=== PATIENT | male | born 1945 | race Caucasian/White ===

== ENCOUNTER 2016-09-14 05:05 | Inpatient (IN) | payer OTHER ==
[2016-06-28 14:06] VITALS: BMI 32.0
--- NOTE | 2016-06-28 14:48 | PAT Medication Instructions ---
Service Date Jun 28, 2016. Current Home Medication List Amlodipine (Norvasc), 5 MG PO QAM Aspirin (Aspirin Ec), 81 MG PO QAM Buspirone Hcl (Buspar), 15 MG PO BID Calcium/Vitamin D (Os-Brian 500 Plus D), 1 TAB PO QAM Desloratadine (Clarinex), 5 MG PO QAM Doxepin (Sinequan), 25 MG PO HS Mlnalizktdq-Dizqmiombmo-Yof C- (Glucosamine Chondroitin), 1 TAB PO QAM Ibuprofen Tab (Advil), 600 MG PO PRN Loratadine (Claritin), 10 MG PO QAM Probiotic Product (Probiotic), 1 TAB PO NOON Sildenafil Citrate (Viagra), 50 MG PO PRN Medication Instructions For Your Scheduled Surgery - Hold the following medications 10 days prior to surgery: Rlxtyeqmwmr-Tilbdknazmx-Rly C- (Glucosamine Chondroitin), 1 TAB PO QAM - Hold the following medications 24 hours prior to surgery: Sildenafil Citrate (Viagra), 50 MG PO PRN - Hold the following medications the morning of surgery: Probiotic Product (Probiotic), 1 TAB PO NOON Loratadine (Claritin), 10 MG PO QAM Ibuprofen Tab (Advil), 600 MG PO PRN (does not take regularly- not told to stop by surgeon) Calcium/Vitamin D (Os-Brian 500 Plus D), 1 TAB PO QAM Desloratadine (Clarinex), 5 MG PO QAM - Take the following medications the morning of surgery with a sip of water: Buspirone Hcl (Buspar), 15 MG PO BID Amlodipine (Norvasc), 5 MG PO QAM Aspirin (Aspirin Ec), 81 MG PO QAM - Take the following medications as scheduled the night before surgery: Doxepin (Sinequan), 25 MG PO HS Buspirone Hcl (Buspar), 15 MG PO BID If you have any questions please call us at [phone] or [phone] ( Emilie) or [phone]
[2016-06-28 15:19] LABS: BASO % 0.4 %; BASO ABS # 0.03 K/uL (0-0.2); COMPLETE YES; EOS % 2.9 %; HEMATOCRIT 41.6 % (42-52); IG% 0.2 %; LYMPH % 23.8 %; LYMPH ABS # 2.04 K/uL (1.2-3.4); MEAN CELL VOLUME 89.8 fL (80-100); MEAN CORPUSCULAR HEMOGLOBIN 31.5 pg (25-34); MEAN CORPUSCULAR HGB CONC 35.1 g/dl (32-36); MEAN PLATELET VOLUME 9.1 fL (7.4-10.4); MONO % 8.4 %; NEUT % 64.3 %; PLATELET COUNT 213 K/uL (130-400); RED BLOOD COUNT 4.63 M/uL (4.7-6.1); WHITE BLOOD COUNT 8.56 K/uL (4.8-10.8)
[2016-06-28 15:29] LABS: URINE APPEARANCE CLEAR (CLEAR); URINE BILIRUBIN NEG (NEG); URINE COLOR YELLOW; URINE NITRITE NEG (NEG); URINE SPECIFIC GRAVITY 1.027 (1.000-1.030); UROBILINOGEN NEG (NEG); ZZUR CULT IF INDIC CLEAN CATCH NO
[2016-06-28 15:30] LABS: PROTHROMBIN TIME (PATIENT) 10.6 SECONDS (9.0-12.0)
[2016-06-28 15:33] LABS: MANUAL MICROSCOPIC REQUIRED? NO; REVIEW REQ? NO
--- NOTE | 2016-06-28 15:38 | DIAGNOSTIC IMAGING REPORT ---
TWO VIEW CHEST CLINICAL HISTORY: Preoperative examination. FINDINGS: PA and lateral chest radiographs are obtained. No prior studies are available for comparison at the time of dictation. The cardiomediastinal silhouette is unremarkable. The lungs and pleural spaces are clear. There is no pneumothorax. The skeletal structures are osteopenic. Degenerative changes noted throughout the thoracic spine. Arthritic change is seen in the shoulders. Calcific tendinopathy is noted in the left shoulder. IMPRESSION: No active disease in the chest. Electronically signed by: Kavon Rosas M.D. 06/28/2016 3:36 PM
[2016-06-28 15:58] LABS: BUN/CREATININE RATIO 18.6 (10-20); CALCIUM 8.6 mg/dl (8.5-10.1); CREATININE 0.91 mg/dl (0.60-1.40); POTASSIUM 3.9 mmol/L (3.5-5.1)
[2016-06-29 05:47] LABS: ESTIMATED AVERAGE GLUCOSE 111 mg/dl; HA1C FLAG Normal (Normal)
[2016-09-06 11:12] VITALS: BMI 32.0
[2016-09-06 11:13] LABS: BASO % 0.3 %; BASO ABS # 0.03 K/uL (0-0.2); COMPLETE YES; EOS % 2.8 %; HEMATOCRIT 44.7 % (42-52); IG% 0.5 %; LYMPH % 28.2 %; LYMPH ABS # 2.74 K/uL (1.2-3.4); MEAN CELL VOLUME 92.4 fL (80-100); MEAN CORPUSCULAR HGB CONC 33.6 g/dl (32-36); MEAN PLATELET VOLUME 9.7 fL (7.4-10.4); MONO % 4.6 %; NEUT % 63.6 %; PLATELET COUNT 186 K/uL (130-400); RED BLOOD COUNT 4.84 M/uL (4.7-6.1); WHITE BLOOD COUNT 9.71 K/uL (4.8-10.8)
[2016-09-06 11:15] LABS: URINE APPEARANCE CLEAR (CLEAR); URINE BILIRUBIN NEG (NEG); URINE COLOR YELLOW; URINE NITRITE NEG (NEG); URINE SPECIFIC GRAVITY 1.012 (1.000-1.030); UROBILINOGEN NEG (NEG); ZZUR CULT IF INDIC CLEAN CATCH NO
[2016-09-06 11:21] LABS: PROTHROMBIN TIME (PATIENT) 10.2 SECONDS (9.0-12.0)
[2016-09-06 11:23] LABS: MANUAL MICROSCOPIC REQUIRED? NO; REVIEW REQ? NO
[2016-09-06 11:51] LABS: BUN/CREATININE RATIO 14.6 (10-20); CALCIUM 8.9 mg/dl (8.5-10.1); POTASSIUM 3.7 mmol/L (3.5-5.1)
--- NOTE | 2016-09-13 18:46 | HISTORY & PHYSICAL EXAMINATION ---
DATE OF ADMISSION: 09/14/2016 CHIEF COMPLAINT: Chronic right shoulder pain. HISTORY OF PRESENT ILLNESS: This is a 71-year-old male patient of Dr. Mendez'asad complaining of chronic right shoulder pain, longstanding, now progressively getting worse. The patient has been diagnosed with end-stage osteoarthritis and has failed conservative treatment. PAST MEDICAL HISTORY: Heart valve problem, mitral valve prolapse which is benign; hypertension; sleep apnea with the use of a mouth piece; he has posttraumatic stress disorder. SOCIAL HISTORY: Nonsmoker. He is about a 14-drink per week drinker. SURGICAL HISTORY: Right elbow and right leg benign tumor removal. FAMILY HISTORY: Noncontributory. REVIEW OF SYSTEMS: Right shoulder pain. Otherwise denies any shortness of breath, chest pain, nausea, vomiting or any other joint complaints. FAMILY HISTORY: Noncontributory. MEDICATIONS: Aspirin 81 mg daily, Claritin 10 mg daily, Buspirone 15 mg b.i.d., amlodipine 5 mg daily, glucosamine chondroitin, calcium, vitamin D, doxepin 25 mg at bedtime, Clarinex 5 mg daily and Viagra 50 mg as needed. ALLERGIES: AUGMENTIN CAUSES GI UPSET. PHYSICAL EXAMINATION: GENERAL: Well-developed, well-nourished 71-year-old male in no acute distress. He is alert and oriented x3 and pleasant. HEENT: Normocephalic, atraumatic. Extraocular motions are intact. Pupils are equal and reactive to light. HEART: Regular rate and rhythm, no murmurs are appreciated. LUNGS: Clear. ABDOMEN: Soft and nontender, bowel sounds are present. EXTREMITIES: Right shoulder reveals crepitation with passive range of motion. He has 4+/5 strength. NEUROLOGIC: Neurovascularly he is intact in his right upper extremity. DIAGNOSES: Right shoulder end-stage osteoarthritis with a history of heart valve-mitral valve prolapse, hypertension, sleep apnea with the use of a mouth piece, posttraumatic stress disorder. PLAN: The patient was advised of his diagnoses. Indications, risks, benefits and postop course have all been reviewed. The patient wishes to proceed with a right elective total shoulder arthroplasty. Necessary consent forms, preoperative testing and clearances will be obtained.
[~2016-09-14] VITALS: Ht 175.3 cm; Wt 100.3 kg
[2016-09-14] VITALS (9 sets, daily range): BP systolic 108–134; BP diastolic 65–86; PULSE 80–105; TEMP 36.5–36.9; O2SAT 91–96; Ht 175.3 cm; Wt 100.3 kg
[~2016-09-14 05:05] MED LIST: AMLO-110 PO; ASPI81TA28 PO; BUSP15TA70 PO; CALC500C70 PO; CLR/5 PO; CLR10 PO; GLUCTAB7 PO; IBUP-103 PO; MISCCAP80 PO; SNQ/25 PO; VGR50 PO
[2016-09-14] MEDS ORDERED: LACTATED RINGER'S 1000ML IV SCH ×2 (06:00)
[2016-09-14] MEDS ORDERED: METOCLOPRAMIDE HCL 10 MG TAB PO SCH (06:00)
[2016-09-14] MEDS ORDERED: GABAPENTIN 300 MG CAP PO SCH (06:00)
[2016-09-14] MEDS ORDERED: CeleBREX 200 MG CAP PO SCH (06:00)
[2016-09-14] MEDS ORDERED: FAMOTIDINE 20 MG TAB PO SCH (06:00)
[2016-09-14] MEDS ORDERED: LACTATED RINGER'S 1000ML 1,000 ML IV SCH (06:00)
[2016-09-14] MEDS ORDERED: TRANEXAMIC ACID INJ 1,000 MG in SODIUM CHLORIDE 0.9% 100ML 100 ML IV SCH (06:00)
[2016-09-14] MEDS ORDERED: ACETAMINOPHEN 500 MG TAB PO SCH (06:00)
[2016-09-14] MEDS ORDERED: OXYCODONE HCL 10 MG TABCR (OXYCONTIN) PO SCH (06:00)
[2016-09-14] MEDS ORDERED: CEFAZOLIN 2000 MG/60 ML D5W 60 ML IV SCH (06:00)
[2016-09-14] MEDS ORDERED: DEXAMETHASONE 4 MG TAB PO SCH (06:00)
[2016-09-14] MEDS ORDERED: ROPIVACAINE 0.5% 5 MG/ML 30 ML VIAL ONE (06:26)
[2016-09-14] MEDS ORDERED: FENTANYL CITRATE INJ 50 MCG/1 ML 2 ML VIAL IV PRN (07:00)
[2016-09-14] MEDS ORDERED: EpHEDrine SULFATE INJ 50 MG/ML AMP IV PRN (07:00)
[2016-09-14] MEDS ORDERED: ONDANSETRON INJ 2 MG/ML 2 ML VIAL IV PRN ×2 (07:00→10:30)
[2016-09-14] MEDS ORDERED: ATROPINE SULFATE 0.1 MG/ML 5ML SYR IV PRN (07:00)
[2016-09-14] MEDS ORDERED: LIDOCAINE HCL 2% 2 ML VIAL (20MG/ML) ONE (07:01)
[2016-09-14] MEDS ORDERED: DEXAMETHASONE SOD INJ 4 MG/ML VIAL ONE (07:01)
[2016-09-14] MEDS ORDERED: ONDANSETRON INJ 2 MG/ML 2 ML VIAL ONE (07:02)
[2016-09-14] MEDS ORDERED: GLYCOPYRROLATE INJ 0.2 MG/ML VIAL ONE ×2 (07:02→09:45)
[2016-09-14] MEDS ORDERED: PROPOFOL IV EMULSION 10 MG/ML 20 ML VIAL IV ONE (07:02)
[2016-09-14] MEDS ORDERED: FENTANYL CITRATE INJ 50 MCG/1 ML 2 ML VIAL ONE (07:02)
[2016-09-14] MEDS ORDERED: ROCURONIUM BROMIDE 10 MG/ML 5 ML VIAL ONE ×2 (07:02→08:18)
[2016-09-14] MEDS ORDERED: NEOSTIGMINE METHYLSULFATE 5 MG/5 ML SYR ONE (07:02)
[2016-09-14] MEDS ORDERED: MIDAZOLAM HCL 1 MG/ML 2ML VIAL ONE (07:02)
--- NOTE | 2016-09-14 07:16 | History & Physical Bridge Note ---
H&P Re-Evaluation Bridge Note: I have examined the patient, reviewed the History & Physical and in the interval since the performance of the History & Physical I have noted the following changes of clinical significance: No changes noted
[2016-09-14] MEDS ORDERED: PHENYLEPHRINE 100MCG/ML 5ML SYR ONE (07:53)
[2016-09-14] MEDS ORDERED: LARYING-O-JET KIT (LTA) EXT ONE ×2 (08:33)
[2016-09-14] MEDS ORDERED: BACITRACIN 50,000 UNITS IR ONE (09:54)
--- NOTE | 2016-09-14 10:14 | [facility] Operative Report ---
Operative Report Operative Date Sep 14, 2016. Pre-Operative Diagnosis Right Shoulder End-Stage Osteoarthritis Post-Operative Diagnosis same Procedure(s) Performed right total shoulder replacement and biceps tenodesis Surgeon Dr. Mendez [employer] Surgeon(s) Tigre Amaya PA-C Estimated Blood Loss 200ml Findings end stage oa biceps tenosynovitis tendinopathy and biceps groove spurs Specimens A: Right Humeral Head Drains 2 hemovac Complication(s) None Disposition Recovery Room / PACU Indications end stage oa I attest to the content of the Intraoperative Record and any orders documented therein. Any exceptions are noted below.
[2016-09-14] MEDS ORDERED: SOD PHOSPHATE/SOD BIPHOSPHATE ENEMA 132 ML BTL PR PRN (10:30)
[2016-09-14] MEDS ORDERED: BISACODYL 10 MG SUPP PR PRN (10:30)
[2016-09-14] MEDS ORDERED: ZOLPIDEM TARTRATE 5 MG TAB PO PRN (10:30)
[2016-09-14] MEDS ORDERED: MAGNESIUM HYDROXIDE SUSP 30 ML UDC PO PRN (10:30)
[2016-09-14] MEDS ORDERED: MoRPHine SULFATE 2 MG/ML CARP IV PRN (10:30)
[2016-09-14] MEDS ORDERED: NON-FORMULARY MEDICATION (Probiotic Product (Probiotic) 1 TAB) PO SCH (10:30)
[2016-09-14] MEDS ORDERED: NALOXONE HCL 0.4 MG/1 ML VIAL/CARP IV PRN (10:30)
--- NOTE | 2016-09-14 11:01 | Anesthesiology Progress Note ---
Anesthesia Post Op Note Date & Time Sep 14, 2016 at 11:01 Vital Signs Pain Intensity: 0 Vital Signs Past 12 Hours Date Time Temp Pulse Resp B/P Pulse Ox O2 Delivery O2 Flow Rate FiO2 09/14/16 10:55 99 17 146/77 94 Nasal Cannula 2 09/14/16 10:45 97 22 130/94 100 Mask 10 09/14/16 10:35 95 20 134/83 97 Mask 10 09/14/16 10:29 36.6 91 16 139/91 100 Mask 10 09/14/16 05:53 80 16 124/86 96 Room Air Notes Mental Status: alert / awake / arousable, participated in evaluation Pt Amnestic to Procedure: Yes Nausea / Vomiting: adequately controlled Pain: adequately controlled Airway Patency, RR, SpO2: stable & adequate BP & HR: stable & adequate Hydration State: stable & adequate Anesthetic Complications: no major complications apparent
--- NOTE | 2016-09-14 11:27 | DIAGNOSTIC IMAGING REPORT ---
RIGHT SHOULDER MIN 2 VIEWS ROUTINE CLINICAL HISTORY: Postoperative evaluation of the right shoulder. COMPARISON: None FINDINGS: Alignment of the right shoulder arthroplasty is anatomic. There is no fracture or unexpected radiopaque foreign body. Drains and skin jose are present. IMPRESSION: Expected findings following right shoulder arthroplasty. Electronically signed by: Javier Burnett M.D. 09/14/2016 11:26 AM Dictated Date/Time: 09/14/2016 11:25 AM
[2016-09-14] MEDS: CLARINEX~ORDER AWAITING ACTION SCH ×2 (12:30→16:52)
[2016-09-14] MEDS ORDERED: MoRPHine SULFATE 4 MG/ML 1 ML CARP\\VIAL IV PRN (12:30)
[2016-09-14] MEDS: D5W AND 1/2NSS + 20MEQ KCL 1,000 ML IV SCH ×2 (13:07→22:21)
[2016-09-14] MEDS ORDERED: INFLUENZA ADMINISTRATION CHARGE ONE (14:15)
[2016-09-14] MEDS ORDERED: INFLUENZA VIRUS QUAD VACCINE 0.5 ML SYR IM. ONE (14:15)
[2016-09-14] MEDS: ACETAMINOPHEN 500 MG TAB PO SCH ×2 (14:16→22:22)
[2016-09-14] MEDS: CEFAZOLIN IV 2,000 MG in DEXTROSE 5% 50ML 50 ML IV SCH (16:51)
--- NOTE | 2016-09-14 19:29 | Progress Note ---
Subjective Date of Service: Sep 14, 2016. Subjective Pt evaluation today including: conversation w/ patient, conversation w/ family , physical exam, chart review, lab review, review of inpatient medication list seen for consult post shoulder surgery - feeling good no pain. can move fingers no other problems - notes BP usually easy to control, takes claritin for allergies ros otherwise negative Review of Systems ros otherwise negative except for as above Objective Vital Signs Date Time Temp Pulse Resp B/P Pulse Ox O2 Delivery O2 Flow Rate FiO2 09/14/16 18:58 36.8 90 17 134/75 94 Room Air 09/14/16 15:13 36.6 94 17 116/74 93 Room Air 09/14/16 14:37 36.9 98 17 120/66 91 Room Air 09/14/16 13:53 36.7 100 17 108/65 93 Room Air 09/14/16 12:54 36.7 105 17 129/68 94 Nasal Cannula 2.0 09/14/16 12:20 89 16 110/72 92 09/14/16 11:50 Nasal Cannula 2.0 09/14/16 11:50 93 Nasal Cannula 2.0 09/14/16 11:50 36.9 104 18 128/74 93 Nasal Cannula 2.0 09/14/16 11:30 104 15 111/76 94 Nasal Cannula 2 09/14/16 11:15 103 17 120/82 96 Nasal Cannula 2 09/14/16 11:05 36.6 101 14 131/84 95 Nasal Cannula 2 09/14/16 10:55 99 17 146/77 94 Nasal Cannula 2 09/14/16 10:45 97 22 130/94 100 Mask 10 09/14/16 10:35 95 20 134/83 97 Mask 10 09/14/16 10:29 36.6 91 16 139/91 100 Mask 10 09/14/16 05:53 80 16 124/86 96 Room Air Physical Exam General Appearance: no apparent distress Eyes: EOMI ENT: hearing grossly normal Neck: trachea midline Respiratory/Chest: no respiratory distress, no accessory muscle use Extremities: + pertinent finding (R arm in sling, neurovascularly intact) Neurologic/Psychiatric: therapeutic case manager II-XII nml as tested, alert, normal mood/affect Assessment and Plan s/p R shoulder surgery -pain controlled -per ortho HTN -appears well controlled, on amlodipine so no significant risk resuming post op in regards to kidney function allergic rhinitis -claritin prn medically appearing very stable will sign off, available as needed, thank you
[2016-09-14] MEDS: BusPIRone 15 MG TAB PO SCH (20:44)
[2016-09-14] MEDS: DOCUSATE SODIUM 100 MG CAP PO SCH (20:44)
[2016-09-14] MEDS: OXYCODONE HCL 10 MG TABCR (OXYCONTIN) PO SCH (20:45)
[2016-09-14] MEDS ORDERED: DOXEPIN HCL 25 MG CAP PO SCH (21:00)
--- NOTE | 2016-09-14 22:46 | OPERATIVE REPORT ---
DATE OF OPERATION: 09/14/2016 INDICATION FOR PROCEDURE: The patient is a 71-year-old male who presents with chronic progressive osteoarthritis in his right shoulder. He has pain and disability and failed all conservative management and presents for total shoulder replacement at this time. His x-rays demonstrate that he has advanced glenohumeral osteoarthritis with flattening of the humeral head, large inferior humeral osteophyte, jaoi-no-hjpv in the glenohumeral joint and concentric wear pattern. PREOPERATIVE DIAGNOSIS: End-stage osteoarthritis, right shoulder. POSTOPERATIVE DIAGNOSIS: Same including significant biceps tenosynovitis, bicipital groove bone spurs. PROCEDURE: Right total shoulder arthroplasty including a biceps tenodesis, debridement, bone spurs bicipital groove. SURGEON: Dr. Mendez. SILICA DRY PRESS HELPER: SANAM Troncoso. ANESTHESIA: Regional block general. OPERATIVE PROCEDURE: The patient was taken to the operating room, anesthetized under regional block and general anesthetic. He was placed on a 30-degree beach chair position on the operating room table. His head was placed on a foam head support. A towel roll was placed in the medial border of his right scapula to support his shoulder. He was translated to right side of the bed, so shoulder could be manipulated off the bed as necessary. His lower extremities had TEDs and SCDs. All lower extremities were well padded. His right shoulder was then sterilely prepped and draped with ChloraPrep. Exam demonstrated he was a fairly large male with range of motion of 30 degrees of external rotation, 90 degrees of abduction and 130 degrees of forward elevation approximately. He had twfr-mx-qegu crepitation. An anterior deltopectoral approach was performed. A longitudinal incision was made in the deltopectoral interval. Skin was incised sharply. Subcutaneous flaps were elevated. The cephalic vein was dissected out and retracted laterally with the deltoid. The dissection was taken down to the clavipectoral fascia which was divided at the lateral margin of the conjoined tendon and strap muscles and extended up to the CA ligament which was preserved. Retractors were placed. This revealed the patient had some synovial extrusion coming out of rotator interval, overlapping some of the subscapularis tendon. This was dissected out and resected from the rotator interval. The bursa over the subscapularis was resected as well as bursa in the subacromial space. This revealed an intact rotator cuff tendon. There was marked tenosynovitis coming out of the bicipital groove area and surrounding biceps tendon. This was resected. This revealed large bridging osteophytes actually coursing all the way around the biceps tendon. The osteophytes were resected. The upper centimeter of the pectoralis was released for inferior exposure. Biceps was tenodesed to the pectoralis tendon using ybhvik-xg-kaxyt #2 Fiberwire sutures and the proximal biceps tendon was resected. The circumflex vessels were identified, tied off with silk ties and divided laterally. The subscapularis muscle fibers were split at the level of the circumflex vessels and a cuff of fibers were kept to protect the axillary nerve inferiorly. I dissected these fibers off the inferior capsule with a Kitner elevator then placed a Hohmann retractor there to protect the axillary nerve which was identified with a tug test. The subscapularis tendon was then taken down with a transtendinous incision through the tendon, leaving a cuff of tissue for repair on the lesser tuberosity. A #1 Vicryl traction suture was placed into the free end of the subscapularis tendon. Subperiosteal dissection was performed to release the capsule off the inferior neck of the humerus as the shoulder was gradually externally rotated and the very large inferior humeral osteophytes were identified. These were removed with an artist chisel and a rongeur. The capsule was released off the inferior neck of the humerus under direct visualization. At this time, a Fukuda retractor was placed into the joint. The glenoid was inspected, which demonstrated no articular surface on the glenoid, concentric wear and degenerative labrum circumferentially and a widened biceps tendon anchor with chronic tendinopathy of the biceps. The labrum was resected circumferentially. The capsular release was performed anterior inferiorly and posterior inferiorly with electrocautery on bone and a Castellanos elevator. Attention was then taken to the humerus and the humerus was exposed with extension and external rotation. An oscillating saw was used to make the humeral head cut, matching the patient's natural retroversion. The humeral head was measured for a 52 mm diameter component. We chose a high offset component based on the anatomy. At this time, we placed glenoid retractors to fully expose the glenoid and drilled the central drill hole into the glenoid. We used the 52 mm Affiniti CortiLoc template which had the best fit and this correlated with the 52 head. The reamer was then used with Affiniti glenoid and then the guide for the peripheral peg holes was used after the central hole was widened. The trial was placed with a good fit and then the glenoid was irrigated with antibiotic solution with bacitracin copiously. The drill holes were packed with epinephrine soaked tampons, dried with a sponge. The Palacos G cement was vacuum mixed and then the Affiniti CortiLoc size 52 glenoid was cemented in position with the central peg being pressfit and the peripheral peg cemented. All excess cement was cleared. After the cement cured, the humeral preparation was performed, starting with awl use, followed by hand broaches to size the stem between a 7 and 8 stem with the hand broaches and then we went ahead with broaches up to a 7, which I felt was the best fit and fill and then we went ahead with the trial head and a 52 x 23 gave the better ligamentous balance as the 52 x 19 had too much posterior laxity as well. The trials were removed. The final component was assembled which was the 7B standard humeral Aequalis Ascend Flex stem assembled to the Aequalis humeral head cobalt chromium 52 x 23 mm diameter with a high offset. Three drill holes were made through the hard bone in the bicipital groove and transosseous #5 FiberWire sutures were placed x3 and after irrigation of the canal, the final component was impacted into position, reduced to the glenoid, the range of motion was verified to be satisfactory and stability was satisfactory with inferior and posterior shuck. Soft tissue tension on subscapularis was satisfactory. The joint was copiously irrigated with antibiotic solution and bacitracin. The subscapularis was repaired with the #5 FiberWire sutures using Rich-Janusz suture technique and then lateral row soft tissue fixation with mfvwuh-id-wsogv #2 FiberWire and the rotator was closed with interrupted wdjpda-ob-rmvhf #2 FiberWire in maximal external rotation and the pectoralis was repaired with rrdcle-lf-zbnxh #2 FiberWire, placing the sutures again through the biceps tendon to reinforce the biceps tenodesis. Range of motion demonstrated 140 degrees of forward elevation without any tension on the repair, 90 degrees of abduction and between 30 and 40 degrees of external rotation. The 2 Hemovac drains were placed and then the deltopectoral interval was closed with agpfxk-pu-lrpnh #1 Vicryl sutures. The subcutaneous tissues were closed with interrupted 2-0 Vicryl and then the skin was closed with jose. Sterile dressings were applied and the patient tolerated the procedure well. SANAM Troncoso was my guest services assistant. He functioned as fist assistant accounting manager through the entire procedure. He assisted in soft tissue retraction, instrument management and assisted in the outer closure of the subcutaneous tissues and skin and will participate in some of the postoperative care of the patient. I attest to the content of the Intraoperative Record and any orders documented therein. Any exceptio ns are noted below.
[2016-09-15] MEDS: CEFAZOLIN IV 2,000 MG in DEXTROSE 5% 50ML 50 ML IV SCH (00:05)
[2016-09-15 03:44] VITALS: BP 145/77; PULSE 88; TEMP 36.4; O2SAT 95
[2016-09-15] MEDS: OXYCODONE HCL IR 5 MG TAB (IMMEDIATE RELEASE) PO PRN ×2 (03:56→13:31)
[2016-09-15] MEDS: ACETAMINOPHEN 500 MG TAB PO SCH (05:42)
[2016-09-15 06:13] LABS: HEMATOCRIT 33.5 % (42-52); MEAN CELL VOLUME 90.8 fL (80-100); MEAN CORPUSCULAR HEMOGLOBIN 31.2 pg (25-34); MEAN CORPUSCULAR HGB CONC 34.3 g/dl (32-36); PLATELET COUNT 195 K/uL (130-400); RED BLOOD COUNT 3.69 M/uL (4.7-6.1); WHITE BLOOD COUNT 9.96 K/uL (4.8-10.8)
[2016-09-15 06:38] LABS: BUN/CREATININE RATIO 11.5 (10-20); CREATININE 0.95 mg/dl (0.60-1.40); POTASSIUM 4.2 mmol/L (3.5-5.1)
[2016-09-15 06:39] LABS: CALCIUM 8.4 mg/dl (8.5-10.1)
[2016-09-15 07:28] VITALS: BP 147/78; PULSE 86; TEMP 36.5; O2SAT 95
[2016-09-15] MEDS: CLARINEX~ORDER AWAITING ACTION SCH ×2 (08:00)
[2016-09-15] MEDS: D5W AND 1/2NSS + 20MEQ KCL 1,000 ML IV SCH (08:40)
[2016-09-15] MEDS: BusPIRone 15 MG TAB PO SCH (08:40)
[2016-09-15] MEDS: DOCUSATE SODIUM 100 MG CAP PO SCH (08:40)
[2016-09-15] MEDS: OXYCODONE HCL 10 MG TABCR (OXYCONTIN) PO SCH (08:45)
[2016-09-15] MEDS ORDERED: CALCIUM 600MG + VIT D 400 IU TAB PO SCH (09:00)
[2016-09-15] MEDS ORDERED: MULTIVITAMIN TAB PO SCH (09:00)
[2016-09-15] MEDS ORDERED: PANTOprazole SOD 40 MG TAB PO SCH (09:00)
[2016-09-15] MEDS ORDERED: AMLODIPINE BESYLATE 5 MG TAB PO SCH (09:00)
[2016-09-15] MEDS ORDERED: ASPIRIN 81 MG ECTAB PO SCH (09:00)
[2016-09-15] MEDS ORDERED: LORATADINE 10 MG TAB PO SCH (09:00)
[2016-09-15 11:02] VITALS: BP 126/77; PULSE 82; TEMP 36.8; O2SAT 96
--- NOTE | 2016-09-15 11:35 | Orthopedic Progress Note ---
Orthopedic Progress Note Date of Service Sep 15, 2016. Subjective Post OP Day: 1 Reports: feeling well, pain controlled w PO medications, Denies: SOB, calf pain , chest pain, complaints, light headedness, nausea / vomiting Additional Notes: asked about leaving today, POD #1, his hemevac put out 50cc's past shift so shoulder be okay. Objective N/V intact, capillary refill less than 2 sec., dressing C/D/I, A&O x3 Sling in tact, fingers mobile. Date Time Temp Pulse Resp B/P Pulse Ox O2 Delivery O2 Flow Rate FiO2 09/15/16 07:42 Room Air 09/15/16 07:28 36.5 86 16 147/78 95 Room Air 09/15/16 03:44 36.4 88 16 145/77 95 Room Air 09/15/16 00:05 Room Air 09/14/16 23:12 36.5 95 16 114/70 94 Room Air 09/14/16 18:58 36.8 90 17 134/75 94 Room Air 09/14/16 15:40 Room Air 09/14/16 15:13 36.6 94 17 116/74 93 Room Air 09/14/16 14:37 36.9 98 17 120/66 91 Room Air 09/14/16 13:53 36.7 100 17 108/65 93 Room Air 09/14/16 12:54 36.7 105 17 129/68 94 Nasal Cannula 2.0 09/14/16 12:20 89 16 110/72 92 09/14/16 11:50 Nasal Cannula 2.0 09/14/16 11:50 93 Nasal Cannula 2.0 09/14/16 11:50 36.9 104 18 128/74 93 Nasal Cannula 2.0 09/14/16 11:30 104 15 111/76 94 Nasal Cannula 2 Laboratory Results 24 Hours: Test 09/15/16 05:55 Hematocrit 33.5 % Hemoglobin 11.5 g/dL Assessment & Plan Assessment: POD #1, Right TSA, biceps tenodesis Plan: PT/ OT DVT proph- ASA D/C planning- home today Appreciate medicine input. Inhouse Planning Pain Management: Oxycontin, Morphine, PO Tylenol, Oxy IR DVT Prophylaxis: SCDs, ASA Discharge Planning Discharge Planning: home with oppt Pain Management: Oxycontin, PO Tylenol, Oxy IR DVT Prophylaxis: ASA Therapy: Physical Therapy, Occupational Therapy
[2016-09-15] MEDS ORDERED: ACET-1138 PO (11:39)
[2016-09-15] MEDS ORDERED: OXYSR10 PO (11:39)
[2016-09-15] MEDS ORDERED: RXC5 PO (11:39)
[2016-09-15] MEDS ORDERED: ONDA8TAB12 PO (11:39)
--- NOTE | 2016-09-15 11:41 | Discharge Instructions ---
Discharge Instructions Admission Reason for Admission: Right Shoulder Degenerative Joint Disease Discharge Discharge Diagnosis / Problem: Right total shoulder replacement, biceps tenodesis Discharge Goals Goal(s): Improve function Activity Recommendations Activity Limitations: as noted below . Instructions / Follow-Up Instructions / Follow-Up ACTIVITY RECOMMENDATIONS: SELF CARE INSTRUCTIONS AFTER TOTAL SHOULDER ARTHROPLASTY A. You may do daily exercises as taught in physical therapy while in hospital. No lifting with the operative arm. Please schedule your outpatient physical therapy appointment to begin within 2-3 days after leaving the hospital. Specific restrictions will be written on your physical therapy prescription that is provided to you. B. You are to wear your sling/immobilizer at all times EXCEPT when performing your daily exercises, participating in physical therapy and for hygiene purposes. C. You may perform dry, daily dressing changes. Please keep your incision covered. You may shower 48 hours after surgery. Do not apply soap or any ointment/ lotions directly over incision. Do not soak incision in bath tub/swimming pool. D. You may use ice as needed to operative shoulder. SPECIAL CARE INSTRUCTIONS: MEDICATION INSTRUCTIONS: *It is recommended you take Aspirin 325mg daily for four weeks post-op. VERY IMPORTANT TO READ AND REVIEW A. There are a few signs you need to watch for after you are home. Call [facility] at [phone] if you experience any of the followin. Increased severe shoulder pain. Some pain is expected especially when you exercise. 2. Increased swelling in you shoulder or arm; pain or swelling in either upper extremity. 3. Any fluid drainage from the incision. 4. Shortness of breath or chest pain. B. Please call [facility] at [phone] if you have any questions or concerns about your operation or recovery. C. Call your physician if: 1. Temperature is greater than 101 degrees (F). 2. Pain is not relieved by prescribed pain medications. 3. Increase drainage or redness from incision. 4. Unanswered questions or concerns. FOLLOW UP VISIT: Please call [facility] at [phone] to schedule a follow up appointment with Dr. Mendez or his PA in 12-14 days from your surgery date. Current Hospital Diet Patient's current hospital diet: Regular Diet Discharge Diet Recommended Diet: Regular Diet Procedures Procedures Performed: Right Total Shoulder Arthroplasty, Cemented Pending Studies Studies pending at discharge: no Laboratory Results Hemoglobin A1c Test 06/28/16 14:52 Range/Units Estimated Average Glucose 111 mg/dl Hemoglobin A1c 5.5 4.5-5.6 % Medical Emergencies . Who to Call and When: Medical Emergencies: If at any time you feel your situation is an emergency, please call 911 immediately. . Non-Emergent Contact Non-Emergency issues call your: Primary Care Provider . "Provider Documentation" section prepared by Tigre Amaya. VTE Core Measure Inpt VTE Proph given/why not?: Other Anticoagulation (asa), SCD's
[2016-09-15 12:09] VITALS: BP 126/77; PULSE 82; TEMP 36.8; O2SAT 96
--- NOTE | 2016-09-28 19:37 | DISCHARGE SUMMARY ---
This is a 71-year-old male patient of Dr. Mendez's complaining of chronic right shoulder pain, longstanding, now progressively getting worse. The patient was diagnosed with end-stage osteoarthritis and elected to proceed with a right total shoulder arthroplasty. PAST MEDICAL HISTORY: Benign heart valve problem, mitral valve prolapse which is benign, hypertension, sleep apnea with the use of mouth piece and post-traumatic stress disorder. POSTOPERATIVE COURSE: The patient underwent a right total shoulder arthroplasty and biceps tenodesis on 09/14/2016. He was followed closely with medical consultation, DVT prophylaxis in the form of aspirin, pain control and limited physical therapy. The patient did well postoperatively and was discharged on postoperative day #1. PHYSICAL EXAMINATION: On discharge right shoulder dressings were clean, dry and intact. The drain was pulled before he was discharged on postop day #1. Neurologically and neurovascularly he was intact in his right upper extremity. DIAGNOSES: Status post right total shoulder arthroplasty and biceps tenodesis. He has a history of mitral valve prolapse which is benign, hypertension, sleep apnea with the use of mouth piece and post-traumatic stress disorder. PLAN: The patient was discharged home with outpatient physical therapy. He will continue aspirin for DVT prophylaxis as well as he was given pain medications. He will continue his preadmission medications and follow up with Dr. Mendez as an outpatient as scheduled.
== END 2016-09-15 13:31 | disposition home or self-care (01) | DRG 483 ==
LOC: ENRESERVTM → ENRESERVDT → C.ACU 05:05 → C.3E 07:11
PROVIDERS: ADMIT Orthopaedic Surgery Sports Medicine; ATTEND Orthopaedic Surgery Sports Medicine
PROC: 0LS30ZZ Reposition Right Upper Arm Tendon, Open Approach (ICD-10-PCS; principal; 2016-09-14 07:15)
PROC: 0RRJ0JZ Replacement of Right Shoulder Joint with Synthetic Substitute, Open Approach (ICD-10-PCS; principal; 2016-09-14 07:15)
DX: M19.011 Primary osteoarthritis, right shoulder (principal); M65.811 Other synovitis and tenosynovitis, right shoulder; I10 Essential (primary) hypertension; I73.9 Peripheral vascular disease, unspecified; K21.9 Gastro-esophageal reflux disease without esophagitis; I34.1 Nonrheumatic mitral (valve) prolapse; I65.29 Occlusion and stenosis of unspecified carotid artery; J30.9 Allergic rhinitis, unspecified; F43.10 Post-traumatic stress disorder, unspecified; G47.30 Sleep apnea, unspecified; E66.9 Obesity, unspecified; Z68.32 Body mass index [BMI] 32.0-32.9, adult; Z79.82 Long term (current) use of aspirin; Z79.899 Other long term (current) drug therapy

== ENCOUNTER → 2017-04-14 | Day surgery (SDC) | payer OTHER ==
[2017-04-04 14:53] VITALS: Ht 175.3 cm; Wt 102.3 kg
[~2017-04-14] VITALS: Ht 175.3 cm; Wt 102.3 kg
[~2017-04-14] MED LIST changes: -CLR/5 PO; -IBUP-103 PO; +LIDOCAINE HCL 2% 2 ML VIAL (20MG/ML) ONE; +PROPOFOL IV EMULSION 10 MG/ML 20 ML VIAL IV ONE; +SODIUM CHLORIDE 0.9% 500ML 500 ML IV ONE
--- NOTE | 2017-04-14 11:46 | Endo History and Physical ---
History & Physical Date of Service: Apr 14, 2017. Chief Complaint: Screening, family hx of colon cancer Referring Physician: Margaret Flood History of Present Illness 71 yo CM who presents for colonoscopy secondary to family history of colon cancer. Past Surgical History Hx Cardiac Surgery: No Hx Internal Defibrillator: No Hx Pacemaker: No Hx Abdominal Surgery: No Hx of Implantable Prosthesis: No Hx Post-Op Nausea and Vomiting: No Hx Cancer Surgery: No Hx Thoracic Surgery: No Hx Orthopedic: Yes (LEFT UPPER ARM MUSCLE REPAIR, RIGHT ULNAR NERVE REPAIR, RT TSA) Hx Urinary Tract Surgery: No Family History Colon CA Social History Smoking Status: Never Smoker Hx Substance Use: No Hx Alcohol Use: Yes (4 A DAY ) Allergies Coded Allergies: Amoxicillin (Verified Adverse Reaction, Mild, N/V/DIARHEA, 04/14/17) Clavulanic Acid (Verified Adverse Reaction, Mild, N/V/DIARHEA, 04/14/17) Current Medications Reported Home Medications Medications Dose Route/Sig Max Daily Dose Days Date Category Probiotic (Probiotic Product) 1 Cap Cap 1 Tab PO NOON 06/28/16 Reported Viagra (Sildenafil Citrate) 50 Mg Tab 50 Mg PO PRN 06/28/16 Reported Sinequan (Doxepin HCl) 25 Mg Cap 25 Mg PO HS 06/28/16 Reported Os-Brian 500 Plus D (Calcium/Vitamin D) Tab 1 Tab PO QAM 06/28/16 Reported Glucosamine Chondroitin (Ntypzhiczzm-Znqosyznahm-Ehq C-) 1 Tab Tab 1 Tab PO QAM 06/28/16 Reported Norvasc (Amlodipine Besylate) 5 Mg Tab 5 Mg PO QAM 06/28/16 Reported Buspar (Buspirone Hcl) 15 Mg Tab 15 Mg PO BID 06/28/16 Reported Claritin (Loratadine) 10 Mg Tab 10 Mg PO QAM 06/28/16 Reported Aspirin Ec (Aspirin) 81 Mg Tab 81 Mg PO QAM 06/28/16 Reported Vital Signs Weight (Kilograms): 102.27 Height (Feet): 5 Height (Inches): 9 Date Time Temp Pulse Resp B/P (MAP) Pulse Ox O2 Delivery O2 Flow Rate FiO2 04/14/17 10:53 36.6 84 20 154/90 (111) 96 Room Air Physical Exam General Appearance: WD/WN, no apparent distress Respiratory/Chest: Auscultation: breath sounds normal Cardiovascular: Heart Auscultation: RRR Abdomen: Bowel Sounds: normal Inspection & Palpation: soft, non-distended, no tenderness, guarding & rebound Assessment and Plan Assessment: 71 yo CM who presents for colonoscopy secondary to family history of colon cancer. Plan: Proceed with colonoscopy.
--- NOTE | 2017-04-14 12:16 | GI REPORT ---
Procedure Date: 04/14/2017 11:56 AM Procedure: Colonoscopy Indications: Family history of colon cancer in a first-degree relative Medicines: Monitored Anesthesia Care Complications: No immediate complications. Estimated Blood Loss: Estimated blood loss: none. Procedure: Pre-Anesthesia Assessment: - Prior to the procedure, a History and Physical was performed, and patient medications and allergies were reviewed. The patient's tolerance of previous anesthesia was also reviewed. The risks and benefits of the procedure and the sedation options and risks were discussed with the patient. All questions were answered, and informed consent was obtained. Prior Anticoagulants: The patient has taken aspirin, last dose was 2 days prior to procedure. ASA Grade Assessment: III - A patient with severe systemic disease. After reviewing the risks and benefits, the patient was deemed in satisfactory condition to undergo the procedure. After I obtained informed consent, the scope was passed under direct vision. Throughout the procedure, the patient's blood pressure, pulse, and oxygen saturations were monitored continuously. The scope was introduced through the anus and advanced to the terminal ileum. The colonoscopy was performed without difficulty. The patient tolerated the procedure well. The quality of the bowel preparation was good. The terminal ileum, ileocecal valve, appendiceal orifice, and rectum were photographed. Findings: Two sessile polyps were found in the transverse colon and in the ascending colon. The polyps were 5 to 7 mm in size. These polyps were removed with a hot snare. Resection and retrieval were complete. Multiple small-mouthed diverticula were found in the sigmoid colon. Non-bleeding internal hemorrhoids were found during retroflexion. The hemorrhoids were small. Impression: - Two 5 to 7 mm polyps in the transverse colon and in the ascending colon, removed with a hot snare. Resected and retrieved. - Diverticulosis in the sigmoid colon. - Non-bleeding internal hemorrhoids. Recommendation: - Resume previous diet. - Continue present medications. - Repeat colonoscopy for surveillance based on pathology results. - Return to primary care physician as previously scheduled. Ismael Christine DO 04/14/2017 12:15:05 PM This report has been signed electronically. Note Initiated On: 04/14/2017 11:56 AM I attest to the content of the Intraoperative Record and orders documented therein, exceptions below
--- NOTE | 2017-04-14 12:18 | Discharge Instructions ---
Endoscopy Patient Instructions Date / Procedure(s) Performed Apr 14, 2017. Colonoscopy Allergy Information Coded Allergies: Amoxicillin (Verified Adverse Reaction, Mild, N/V/DIARHEA, 04/14/17) Clavulanic Acid (Verified Adverse Reaction, Mild, N/V/DIARHEA, 04/14/17) Discharge Date / Findings Apr 14, 2017. Colon polyps Diverticulosis Internal hemorrhoids Medication Instructions OK to resume all medications today as prescribed Reported Home Medications Medications Dose Route/Sig Max Daily Dose Days Date Category Probiotic (Probiotic Product) 1 Cap Cap 1 Tab PO NOON 06/28/16 Reported Viagra (Sildenafil Citrate) 50 Mg Tab 50 Mg PO PRN 06/28/16 Reported Sinequan (Doxepin HCl) 25 Mg Cap 25 Mg PO HS 06/28/16 Reported Os-Brian 500 Plus D (Calcium/Vitamin D) Tab 1 Tab PO QAM 06/28/16 Reported Glucosamine Chondroitin (Wkgmzfcuziv-Bnkhviiemin-Vkt C-) 1 Tab Tab 1 Tab PO QAM 06/28/16 Reported Norvasc (Amlodipine Besylate) 5 Mg Tab 5 Mg PO QAM 06/28/16 Reported Buspar (Buspirone Hcl) 15 Mg Tab 15 Mg PO BID 06/28/16 Reported Claritin (Loratadine) 10 Mg Tab 10 Mg PO QAM 06/28/16 Reported Aspirin Ec (Aspirin) 81 Mg Tab 81 Mg PO QAM 06/28/16 Reported Provider Instructions Activity Restrictions - No exercising or heavy lifting for 24 hours. - Do not drink alcohol the day of the procedure. - Do not drive a car or operate machinery until the day after the procedure. - Do not make any important decisions or sign important papers in 24 hours after the procedure. Following Day: - Return to full activity which may include returning to work/school. Diet Start your diet with liquids and light foods (jello, soup, juice, toast). Then eat your usual diet if not nauseated. Treatment For Common After Affects For mild abdominal pain, bloating, or excessive gas: - Rest - Eat lightly - Lie on right side Follow-Up Information Follow-up with Margaret Flood as scheduled Anesthesia Information What You Should Know You have had a procedure that required some medicine to reduce anxiety and discomfort. This treatment is called moderate sedation. After receiving the treatment, you may be sleepy, but you will be able to breathe on your own. The effects of the treatment may last for several hours. Follow these instructions along with Activity/Diet recommendations noted above: * Do NOT do anything where dizziness or clumsiness would be dangerous. * Rest quietly at home today, then you can be up and about tomorrow. * Have a responsible person stay with you the rest of today. * You may have had an I.V. today. If so, you may take the dressing off later today. Recommendations Call your doctor if: * Trouble breathing * Continuous vomiting for more than 24 hours * Temperature above 101 degrees * Severe abdominal pain or bloating * Pain not relieved by pain medicine ordered * There is increased drainage or redness from any incision * A large amount of rectal bleeding greater than 2-3 tablespoons. (If you had a polyp/s removed or have hemorrhoids, a small amount of blood - from the rectum is to be expected.) * You have any unanswered questions or concerns. IN THE EVENT OF A SERIOUS EMERGENCY, GO TO THE NEAREST EMERGENCY ROOM Your discharge instructions were prepared by provider Ismael Christine. Patient Instructions Signature Page Jame Workman Patient (or Guardian) Signature/Date: I have read and understand the instructions given to me by my caregivers. Caregiver/RN/Doctor Signature/Date: The above-named patient and/or guardian has received patient instructions on this date. + Original Patient Signature Page (only) stays with chart. Please make copy for patient.
[2017-04-14 12:27] VITALS: BP 129/74; PULSE 70; O2SAT 96
--- NOTE | 2017-04-14 13:01 | Anesthesiology Progress Note ---
Anesthesia Post Op Note Date & Time Apr 14, 2017 at 13:01 Vital Signs Pain Intensity: 0 Vital Signs Past 12 Hours Date Time Temp Pulse Resp B/P (MAP) Pulse Ox O2 Delivery O2 Flow Rate FiO2 04/14/17 12:27 70 18 129/74 (92) 96 Room Air 04/14/17 12:12 67 18 110/73 (85) 96 Room Air 04/14/17 10:53 36.6 84 20 154/90 (111) 96 Room Air Notes Mental Status: alert / awake / arousable, participated in evaluation Pt Amnestic to Procedure: Yes Nausea / Vomiting: adequately controlled Pain: adequately controlled Airway Patency, RR, SpO2: stable & adequate BP & HR: stable & adequate Hydration State: stable & adequate Anesthetic Complications: no major complications apparent
== END | disposition home or self-care (01) ==
LOC: C.GI 10:34
PROVIDERS: ATTEND Internal Medicine
DX: Z12.11 Encounter for screening for malignant neoplasm of colon (principal); Z80.0 Family history of malignant neoplasm of digestive organs; D12.3 Benign neoplasm of transverse colon; D12.2 Benign neoplasm of ascending colon; K57.30 Diverticulosis of large intestine without perforation or abscess without bleeding; K64.8 Other hemorrhoids; Z79.82 Long term (current) use of aspirin

== ENCOUNTER 2018-11-28 09:17 | Inpatient (IN) ==
--- NOTE | 2018-11-15 16:17 | PAT Medication Instructions ---
Medication Instructions Date of Service November 15, 2018 Home Medications Glucosamine 1 tab PO QAM amlodipine 5 mg PO QAM aspirin [Aspir-81] 81 mg PO QAM buspirone 15 mg PO QAM calcium carbonate-vitamin D3 1 tab PO QAM doxepin 25 mg PO HS lactobacillus combination no.4 3,000 mmu cells PO QAM loratadine 10 mg PO QAM sildenafil 50 mg PO DAILY PRN tramadol 50 mg PO Q6H PRN STOP taking 2 weeks before surgery (or as soon as possible if surgery is within 2 weeks) Glucosamine 1 tab PO QAM DO NOT take the morning of surgery calcium carbonate-vitamin D3 1 tab PO QAM lactobacillus combination no.4 3,000 mmu cells PO QAM loratadine 10 mg PO QAM sildenafil 50 mg PO DAILY PRN Take morning of surgery With a small sip of water, OTHERWISE NOTHING TO EAT OR DRINK AFTER MIDNIGHT: amlodipine 5 mg PO QAM aspirin [Aspir-81] 81 mg PO QAM buspirone 15 mg PO QAM tramadol 50 mg PO Q6H PRN (okay to take up to 4 hours prior to surgery if needed) Take evening before surgery doxepin 25 mg PO HS sildenafil 50 mg PO DAILY PRN (if needed) tramadol 50 mg PO Q6H PRN (if needed) Other Notes If you have any questions please call us at [phone] or [phone] or or [phone]
--- NOTE | 2018-11-16 11:25 | Anesthesiology Consultation ---
Date of Service November 16, 2018 Assessment & Plan (1) Encounter for pre-operative examination: Chart Review Chart Review: Acceptable Risk for Surgery and Patient seen in Pre Admission Testing Consults Requested medical & cardiac (Dr. Flood (11/14) Dr. Lyn (11/14)) Note received from Dr. Lyn's office on 11/21 which states that patient "is felt to be a low cardiac risk for the planned orthopedic surgery". This reiterates his statements from 11/14/18 visit note. Patient was also seen by PCP's office on 11/16 for preoperative evaluation. Note from that visit states, "Patient is medically cleared for bilateral knee arthroplasties provided that pre-op lab tests, EKG, and chest X-rays show no acute findings." Teaching & Discussion Pre-Anesthesia Teaching/Discussion Notes: Instructed NPO after midnight before surgery, except medications with 15 cc of water. Medication instructions provided according to the PAT guidelines. History Surgery Operation Date: 11/28/18 09:00 Proposed Procedures p Bilateral Total Knee Arthroplasty - Ike Mendez MD Height/Weight Height: 5 ft 9 in Weight: 97.2 kg Allergies Allergy/AdvReac Type Severity Reaction Status Date / Time amoxicillin AdvReac Mild N/V/DIARHEA Verified 11/12/18 08:35 clavulanic acid AdvReac Mild N/V/DIARHEA Verified 11/12/18 08:35 Medications Home Medications Medication Instructions Recorded Confirmed Last Taken Glucosamine 1 tab PO QAM 11/12/18 11/12/18 Unknown amlodipine 5 mg PO QAM 11/12/18 11/12/18 Unknown aspirin [Aspir-81] 81 mg PO QAM 11/12/18 11/12/18 Unknown buspirone 15 mg PO QAM 11/12/18 11/12/18 Unknown calcium carbonate-vitamin D3 1 tab PO QAM 11/12/18 11/12/18 Unknown [Calcium 500 + D] doxepin 25 mg PO HS 11/12/18 11/12/18 Unknown lactobacillus combination no.4 3,000 mmu cells PO QAM 11/12/18 11/12/18 Unknown [Probiotic] loratadine 10 mg PO QAM 11/12/18 11/12/18 Unknown sildenafil 50 mg PO DAILY PRN 11/12/18 11/12/18 Unknown tramadol 50 mg PO Q6H PRN 11/12/18 11/12/18 Unknown Past Medical History Medical History Hypertension Osteoarthritis Post traumatic stress disorder Sleep apnea PT USES ORAL APPLIANCE Past Surgical History Surgical History History of colonoscopy History of surgery BENIGN CYST EXCISION FROM RIGHT [place] CHILD 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 - MAC #4, ETT #8.0, HiLo, Grade 1 View Past Anesthesia History No Hx of Anesthesia Complications and No Family Hx of Anesthesia Complications History of PONV No Motion Sickness Screening History of Motion Sickness: No Social History Smoking Status: Never smoker tobacco type: smokeless tobacco Do You Dip or Chew Tobacco: No (HX OF CHEWING TOBACCO USE, QUIT AT AGE 29) Hx Alcohol Use: Yes Alcohol type: wine alcohol intake frequency: holidays/special occasions only Hx Substance Use: No substance use type: does not use Exercise / Class Metabolic Activity II 4-5 Yardwork/Stairs/Walk up hill (Able to climb FOS without CP or SOB. ) Review of Systems Patient denies chest pain, shortness of breath, dyspnea on exertion, reflux, cough, wheezing, palpitations. +Joint Pain (knees, left achilles tendon) Physical Exam Vital Signs BP: 107/70 P: 70 R: 14 T: 98.0 SPO2: 99% on RA ENMT Mouth: + dental restorations and + macroglossia Thyromental Distance: > or= 3.5 Finger Breadths (3.5) Mallampati Class: II Neck normal visual inspection and trachea midline; neck extension not limited Respiratory normal respiratory effort Auscultation: lungs clear to auscultation bilaterally Cardiovascular Rate/Rhythm: regular rate and regular rhythm Heart Sounds: no murmur Vessels: no carotid bruit Neurologic moves all extremities Psychiatric Orientation: alert and oriented x 3 Testing Electrocardiogram Date: 11/16/18 Findings: + NSR @ (73) and + no change from (06/28/16) Chest X-Ray Date: 11/16/18 FINDINGS: Atherosclerosis of the aortic arch. Cardiac silhouette normal in size. Lungs mildly hyperinflated. No focal opacity. No pleural effusion or pneumothorax. Degenerative changes of the thoracic spine. Right shoulder arthroplasty new from prior. Upper abdomen normal. IMPRESSION: 1. Mild hyperinflation could suggest underlying emphysema or other obstructive lung disease. Alternatively, this could be due to inspiratory effort. No focal infiltrate to suggest pneumonia. Stress Test Date: 01/23/17 The patient reported shortness of breath during the stress test. Arrythmias were not significant. Exercise Stress test is negative electrically for myocardial ischemia and clinically negative for angina. No significant arrhythmia seen. Laboratory Results 11/16/18 12:00 11/16/18 12:02 Blood Type B Negative 11/16/18 12:00 Antibody Screen NEGATIVE 11/16/18 12:00 PT 10.6 Seconds (9.0-12.0) 11/16/18 12:00 INR 1.0 (0.9-1.1) 11/16/18 12:00 APTT 26.6 Seconds (21.0-31.0) 11/16/18 12:00 Hemoglobin A1c 5.2 % (4.5-5.6) 11/16/18 12:00 Urine Color Yellow 11/16/18 12:00 Urine Appearance Clear (Clear) 11/16/18 12:00 Urine pH 5.0 (4.5-7.5) 11/16/18 12:00 Ur Specific Knifley 1.024 (1.000-1.030) 11/16/18 12:00 Urine Protein Negative (Negative) 11/16/18 12:00 Urine Glucose (UA) Negative (Negative) 11/16/18 12:00 Urine Ketones Trace (Negative) H 11/16/18 12:00 Urine Nitrite Negative (Negative) 11/16/18 12:00 Ur Leukocyte Esterase Negative (Negative) 11/16/18 12:00 Urine WBC (Auto) 1-5 /hpf (0-5) 11/16/18 12:00 Urine RBC (Auto) 0-4 /hpf (0-4) 11/16/18 12:00 U Hyaline Cast (Auto) 0 /lpf (0-5) 11/16/18 12:00 U Epithel Cells (Auto) 5-10 /lpf (0-5) H 11/16/18 12:00 Urine Bacteria (Auto) Negative (Negative) 11/16/18 12:00
--- NOTE | 2018-11-16 12:35 | XRay Report ---
XR chest Pre-admission PA/Lat CLINICAL HISTORY: 73 years-old Male presenting with preoperative evaluation. TECHNIQUE: PA and lateral views of the chest were obtained. COMPARISON: 06/28/2016. FINDINGS: Atherosclerosis of the aortic arch. Cardiac silhouette normal in size. Lungs mildly hyperinflated. No focal opacity. No pleural effusion or pneumothorax. Degenerative changes of the thoracic spine. Righ t shoulder arthroplasty new from prior. Upper abdomen normal. IMPRESSION: 1. Mild hyperinflation could suggest underlying emphysema or other obstructive lung disease. Alterna tively, this could be due to inspiratory effort. No focal infiltrate to suggest pneumonia. Electronically signed by: Justen Allen M.D. 11/16/2018 12:33 PM
[2018-11-16 12:42] LABS: Basophils # (auto) 0.03 K/uL (0-0.2); Basophils % (auto) 0.4 %; Eosinophils # (auto) 0.28 K/uL (0-0.5); Hematocrit (blood only) 40.8 % (42-52); Immature Granulocytes # (auto) 0.01 K/uL (0.00-0.02); Immature Granulocytes % (auto) 0.1 %; Lymphocytes # (auto) 1.93 K/uL (1.2-3.4); Lymphocytes % (auto) 27.5 %; Mean Corpuscular Hgb Conc 34.3 g/dL (32-36); Mean Corpuscular Volume 91.9 fL (80-100); Mean Platelet Volume 9.3 fL (7.4-10.4); Monocytes # (auto) 0.53 K/uL (0.11-0.59); Monocytes % (auto) 7.5 %; Neutrophils # (auto) 4.25 K/uL (1.4-6.5); Neutrophils % (auto) 60.5 %; Platelet Count 242 K/uL (130-400); RDW Coefficient of Variation 12.5 % (11.5-14.5); RDW Standard Deviation 42.5 fL (36.4-46.3); Red Blood Count 4.44 M/uL (4.7-6.1); White Blood Count 7.03 K/uL (4.8-10.8)
[2018-11-16 12:44] LABS: Appearance Urine Clear (Clear); Bacteria Urine Automated Negative (Negative); Bilirubin Urine Negative (Negative); Blood Urine Trace (Negative); Cast Urine Automated 0 /lpf (0-5); Color Urine Yellow; Glucose Urine UA Negative (Negative); Ketones Urine Trace (Negative); Leukocyte Esterase Urine Negative (Negative); Nitrite Urine Negative (Negative); Protein Urine Negative (Negative); RBC Urine Automated 0-4 /hpf (0-4); Specific Gravity Urine 1.024 (1.000-1.030); Urobilinogen Urine Negative (Negative)
[2018-11-16 12:49] LABS: Albumin Level 3.7 gm/dl (3.4-5.0); BUN Creatinine Ratio 17.6 (10-20); Calcium 9.2 mg/dl (8.5-10.1); Creatinine Clr Calc Pharmacy 86.3 ml/min; Est GFR (Non-African American) 85.4; Potassium 4.4 mmol/L (3.5-5.1)
[2018-11-16 12:51] LABS: Partial Thromboplastin Time 26.6 Seconds (21.0-31.0); Prothrombin Time 10.6 Seconds (9.0-12.0)
[2018-11-16 13:13] LABS: Estimated Average Glucose 103 mg/dl; Hemoglobin A1C 5.2 % (4.5-5.6)
--- NOTE | 2018-11-27 16:46 | History and Physical Report ---
DATE OF ADMISSION: 11/28/2018 CHIEF COMPLAINT: Bilateral knee pain. HISTORY OF PRESENT ILLNESS: This is a 73-year-old male patient of Dr. Mendez'asad complaining of chronic bilateral knee pain, longstanding, now progressively getting worse. The patient has been diagnosed with end-stage osteoarthritis in both knees per clinical and radiographic exams. The patient has failed conservative treatment including intraarticular injections, anti-inflammatories, the use of a sleeve and home exercise programs for both knees. He has increased pain with weightbearing activities and his pain does interfere with his activities of daily living. The patient wishes to proceed with bilateral total knee arthroplasties. PAST MEDICAL HISTORY: Heart valve problem, hypertension, sleep apnea with the use of CPAP, osteoarthritis. SOCIAL HISTORY: Nonsmoker, nondrinker. FAMILY HISTORY: Noncontributory. PAST SURGICAL HISTORY: Right shoulder replacement and right leg benign tumor removal. REVIEW OF SYSTEMS: The patient complains of bilateral chronic pain in both knees. Otherwise, denies any shortness of breath, chest pain, nausea, vomiting or any other joint complaints. MEDICATIONS: Claritin 10 mg daily, buspirone 15 mg twice daily, amlodipine 5 mg daily, glucosamine chondroitin daily, calcium daily, vitamin D3 daily, doxepin 25 mg daily, aspirin 81 mg 2 tablets daily, vitamin B12 500 mcg daily, Flovent Diskus 50 mcg actuation inhaler 1 puff daily, Viagra 100 mg as needed, Ultram 50 mg as needed,fluconase as needed, Super Beta Prostate twice daily. ALLERGIES: PENICILLIN AND AUGMENTIN. PHYSICAL EXAMINATION: GENERAL: Well-developed, well-nourished 73-year-old male in no acute distress. He is alert and oriented x3 and pleasant. HEENT: Normocephalic, atraumatic. Extraocular motions are intact. Pupils equal and reactive to light. HEART: Regular rate and rhythm, no murmurs. LUNGS: Clear. ABDOMEN: Soft, nontender, bowel sounds present. EXTREMITIES: Both knees limited range of motion of 0-100 degrees. Both knees have a varus deformity. Both knees have crepitation with passive range of motion. Both knees have medial joint line tenderness and are stable. Both lower extremities are neurologically and neurovascularly intact. He has 5/5 strength with pain in both knees. DIAGNOSES: Bilateral knee end-stage osteoarthritis, heart valve problem, hypertension, sleep apnea with the use of CPAP, osteoarthritis. PLAN: The patient was advised of his diagnosis. Indications, risks, benefits, postop course have all been reviewed. The patient wished to proceed with bilateral total knee arthroplasties. Necessary consent forms, preoperative testing and clearances will be obtained. BENI
[~2018-11-28 09:17] MED LIST changes: +ACETAMINOPHEN 500 MG TAB PO SCH; -AMLO-110 PO; -ASPI81TA28 PO; +BUPIVACAINE 0.5 % 5 MG/1 ML PF 10ML VIAL ONE; -BUSP15TA70 PO; -CALC500C70 PO; +CEFAZOLIN 2000MG 2,000 MG/15 ML SYR IV SCH; -CLR10 PO; +CeleBREX 200 MG CAP PO SCH; +EPINEPHrine INJ 1 MG/ML AMP ONE; +FAMOTIDINE 20 MG TAB PO SCH; +GABAPENTIN 300 MG PO SCH; -GLUCTAB7 PO; -LIDOCAINE HCL 2% 2 ML VIAL (20MG/ML) ONE; +LR 500ML BOLUS, THEN 15ML/HR IV SCH; +METOCLOPRAMIDE HCL 10 MG TABLET PO SCH; -MISCCAP80 PO; -PROPOFOL IV EMULSION 10 MG/ML 20 ML VIAL IV ONE; +ROPIVACAINE 0.5% 5 MG/ML 30 ML VIAL ONE; +ROPIVACAINE 0.5% HCL/PF 150 MG, BUPIVACAINE 0.5% MPF 30 ML, EPINEPHrine 30MG/30ML (OR U... INFIL SCH; -SNQ/25 PO; -SODIUM CHLORIDE 0.9% 500ML 500 ML IV ONE; +TRANEXAMIC ACID 1,000 MG **IV Intra-op IV SCH; +TRANEXAMIC ACID 1,000 MG **IV Pre-op IV SCH; -VGR50 PO; +dexAMETHasone 4 MG TAB PO SCH
[2018-11-28] MEDS ORDERED: MIDAZOLAM HCL 1 MG/ML 2ML VIAL ONE ×4 (09:37→14:33)
[2018-11-28] MEDS ORDERED: BACITRACIN INJ 50,000 UNIT VIAL ONE (09:38)
[2018-11-28] MEDS ORDERED: POVIDONE-IODINE OP SOLN 30 ML BTL ONE ×2 (09:38→14:01)
[2018-11-28] MEDS ORDERED: ORTHO JOINT ANESTHETIC ONE (09:38)
[2018-11-28] MEDS ORDERED: fentaNYL citrate 100 MCG/2 ML VIAL ONE (09:38)
--- NOTE | 2018-11-28 10:12 | History & Physical Bridge Note ---
Date of Service November 28, 2018 History & Physical Bridge Note I have examined the patient, reviewed the History & Physical and in the interval since the performance of the History & Physical I have noted the following changes of clinical significance: no changes noted
[2018-11-28] MEDS ORDERED: PROPOFOL IV EMULSION 10 MG/ML 20 ML VIAL IV ONE ×2 (13:15→14:45)
[2018-11-28] MEDS ORDERED: LIDOCAINE HCL 2% 2 ML VIAL/AMP(20MG/ML) INFIL ONE (13:15)
[2018-11-28] MEDS ORDERED: ONDANSETRON INJ 2 MG/ML 2 ML VIAL ONE (14:39)
[2018-11-28] MEDS ORDERED: HYDROmorphone INJ 1 MG/ML SYRINGE IV PRN (15:48)
[2018-11-28] MEDS ORDERED: NALOXONE HCL 0.4 MG/1 ML VIAL/CARP IV PRN ×2 (15:48→16:44)
[2018-11-28] MEDS ORDERED: FLUMAZENIL 0.1 MG/1 ML 10 ML VIAL IV PRN (15:48)
[2018-11-28] MEDS ORDERED: ONDANSETRON INJ 2 MG/ML 2 ML VIAL IV PRN ×2 (15:48→16:44)
[2018-11-28] MEDS ORDERED: ePHEDrine sulfate 50 MG/ML AMP IV PRN (15:48)
[2018-11-28] MEDS ORDERED: PROMETHAZINE HCL 12.5 MG in SODIUM CHLORIDE 0.9% 50 ML IV PRN (15:48)
[2018-11-28] MEDS ORDERED: ATROPINE SULFATE 0.1 MG/ML 10ML SYR IV PRN (15:48)
--- NOTE | 2018-11-28 15:50 | Post Operative Brief Note ---
Immediate Post Op Note v1 Date of Surgery November 28, 2018 Pre & Post Diagnosis Operation Date: 11/28/18 12:00 Pre-Op Diagnosis: Bilateral Knee End-stage osteoarthritis Post-Op Diagnosis: Bilateral Knee End-stage osteoarthritis Procedure Operation Date: 11/28/18 12:00 Actual Procedures p Bilateral Total Knee Arthroplasty(Bilateral) - Ike Mendez MD Surgeon Ike Mendez MD Refined Syrup Operator Tigre MARION Estimated Blood Loss 25 Findings Consistent with Post-Op Diagnosis Specimens Bone cuts Drains Hemovac Drain (x2, 1 per knee) Anesthesia Type Spinal MAC Complications none Disposition Accompanied Patient To Recovery: No Disposition: Recovery Room Overlapping Procedure I was immediately available: during the entire case.
--- NOTE | 2018-11-28 16:16 | XRay Report ---
RIGHT KNEE 2 VIEWS History: Right total knee arthroplasty. Degenerative arthritis. Postop. FINDINGS: The patient is status post a right total knee arthroplasty. The hardware is intact. No frac ture or dislocation. Skin jose and surgical drains are in place. IMPRESSION: Right total knee arthroplasty. No evidence for hardware complication. Electronically signed by: Nick Sanchez M.D. 11/28/2018 4:15 PM
--- NOTE | 2018-11-28 16:17 | XRay Report ---
LEFT KNEE 2 VIEWS History: Left total knee arthroplasty. Degenerative arthritis. Postop. FINDINGS: The patient is status post a left total knee arthroplasty. The hardware is intact. No fract ure or dislocation. Skin jose and surgical drains are in place. IMPRESSION: Left total knee arthroplasty. No evidence for hardware complication. Electronically signed by: Nick Sanchez M.D. 11/28/2018 4:16 PM
--- NOTE | 2018-11-28 16:27 | Anesthesiology Progress Note ---
Date of Service November 28, 2018 Anesthesia Post Procedure Vital Signs Vital Signs: Temp Pulse Pulse Resp BP BP Pulse Ox 11/28/18 16:20 36.4 C L 85 18 129/78 97 11/28/18 16:10 89 12 126/79 97 11/28/18 16:00 88 14 114/81 98 11/28/18 15:52 36.0 C L 90 13 108/78 100 11/28/18 10:20 36.7 C 80 16 155/99 H 100 Pain Intensity Bilateral Knee: Pain Intensity: 0 Notes Mental Status: alert / awake / arousable Patient Amnestic to Procedure: Yes Nausea / Vomiting: adequately controlled Pain: adequately controlled Airway Patency, RR, SpO2: stable & adequate BP & HR: stable & adequate Hydration State: stable & adequate Neuraxial Anesthesia: was administered and sensory block is resolving Anesthetic Complications: no major complications apparent and Pt Satisfied with anesthetic care
[2018-11-28] MEDS ORDERED: BISACODYL 10 MG SUPP PR PRN (16:44)
[2018-11-28] MEDS ORDERED: MAGNESIUM HYDROXIDE SUSP 30 ML UDC PO PRN (16:44)
[2018-11-28] MEDS ORDERED: HYDROmorphone INJ 0.5 MG/0.5 ML SYR IV PRN (16:44)
[2018-11-28] MEDS ORDERED: METOCLOPRAMIDE HCL INJ 5 MG/ML 2 ML VIAL IV PRN (16:44)
[2018-11-28] MEDS ORDERED: VANCOMYCIN CONSULT ACTIVE PRN (16:44)
--- NOTE | 2018-11-28 18:33 | Operative Report ---
Post Operative Report Pre & Post Diagnosis Operation Date: 11/28/18 12:00 Pre-Op Diagnosis: Bilateral Knee End-stage osteoarthritis Post-Op Diagnosis: Bilateral Knee End-stage osteoarthritis Procedure Operation Date: 11/28/18 12:00 Actual Procedures p Bilateral Total Knee Arthroplasty(Bilateral) - Ike Mendez MD Surgeon Ike Mendez MD Stuffing Machine Operator Tigre MARION Estimated Blood Loss 25 Findings Consistent with Post-Op Diagnosis Specimens Bone cuts Drains 2 Hemovac drains each knee Anesthesia Type Spinal MAC Complications none Disposition Accompanied Patient To Recovery: No Disposition: Recovery Room Indications Active healthy 73-year-old male with severe end-stage bilateral knee osteoarthritis failed conservative management including injections bracing exercises. Patient desired bilateral knee replacements. Description of Procedure Patient taken to the operating room the size under spinal MAC regional block an esthesia both lower extremities anesthesia. Patient was placed supine on the operating table. A pneumatic tourniquet was placed about each of the upper thighs. The both lower extremities were prepped and draped in sterile fashion. Knee exam demonstrated bilateral knees had flexion contractures varus knees range of motion -20 to115 degrees. Patient bilateral knee effusions. The left leg was first elevated exsanguinated with an Esmarch bandage and pneumatic tourniquet was raised to 300 millimeters of mercury. Skin incised sharply in longitudinal fashion. Subcutaneous flaps elevated. Incision was made through the medial retinaculum extending up in the mid third of the quadriceps tendon and down to the medial tibial tubercle. Intra-articular findings demonstrated tricompartmental DJD grade 4 [id number] medial compartment grade 4 trochlear disease grade 3-4 central patellar disease grade 3 close to grade 4 wear on the lateral femoral condyle. Partial ACL tear. The [employer] triathlon total knee arthroplasty system was used. To expose the knee the infrapatellar fat pad was resected. The meniscal remnants and cruciate ligaments were resected. The anterior fat pad over the femur in the area of the anterior flange of the femoral component was resected. Lateral synovial bands release. The femur was exposed. An intramedullary drill hole was made into the canal. A guide loyda was placed. Distal femoral cutting guide was adjusted to resect a 5 degree valgus cut with 10 millimeters distal femur resected. The knee was extended and a subperiosteal peel lateral release was performed around the patella. Patella width was measured and width was reproduced using a freehand cut technique and a 36 x 10 symmetrical patella component. The 3 drill holes were made and the ex cess lateral facet was beveled off to prevent any impingement. Attention was taken back to the femur which was exposed with retractors and the femoral sizing guide was pinned in position. The drill holes were placed in 3 of external rotation to match epicondylar axis. Femur sized for a 7 component. The 4-in-1 cutting block was placed and then the anterior posterior and chamfer cuts are made. The tibia was then subluxed. The external tibial cutting guide was just to make a perpendicular cut to the long axis of the tibia below the most deficient bone loss side. A lamina wired sweatband cutter was used and the flexion extension gaps were balanced. All posterior osteophytes removed. All meniscal remnants were resected. The tibia exposed and the trial tibial component size 7 was externally rotated in line with the tibial tubercle and pinned in position. The punch for stem was used. The notch cutting device was centered appropriately and the femoral notch cut was made. The femoral trial was inserted. Trial tibial inserts were placed and size 11 mm gave balanced ligaments through flexion and extension. Patella tracking was assessed. The patella tracked centrally. The trial components were then removed and the orthomix anesthetic cocktail was injected per protocol. The knee was then copiously irrigated with pulsatile lavage antibiotic solution. Final components were then cemented with Simplex cement. Final components were tried to lyse posterior stabilized left size 7 femur size 7 primary tibial baseplate, X3 poly-7 x 11 mm tibial insert, H3 probably 36 x 10 mm symmetrical patella. While the cement cured the Betadine soak was used per protocol. After cement cured further pulsatile lavage irrigation performed and 2 Hemovac drains were brought out laterally. The quadriceps tendon and medial retinaculum were closed with figure of 8 #1 Vicryl sutures. The knee was taken through full range of motion and the repair was secure. The subcutaneous tissues were closed with 2-0 Vicryl sutures. Skin was closed with jose. Sterile dressings were applied. During the left knee closure attention was taken to the right lower extremity. This leg was elevated exsanguinated with an Esmarch bandage and a pneumatic tourniquet was raised to 300 mmHg as well. Similar exposure was performed to the right knee. Intra- articular findings demonstrated a thicker ACL but similar tricompartmental degenerative arthritis [id number] the medial compartment grade 4 trochlear disease grade 3-4 patella and lateral femoral condyle disease. Exposure was similar as dictated the right knee required releases around the medial and posterior medial tibia and a minor pie crusting of the MCL to balance ligaments. The disease was not as severe on the right so less tibial bone had to be resected. Femur and tibia was sized for a 7 however on trialing the trial tibial insert was a 9. Patella size was similar. The distal femoral cut was also made at 5 degrees valgus with 10 mm distal resection. Similar injections and cementing technique was used. The final components were the right size 7 posterior stabilized triathlon femoral component the triathlon primary size 7 tibial baseplate the triathlon next 3 size 7 x 9 tibial bearing polyethylene insert and the X3 poly-symmetrical patella size 36 x 10. Irrigation and wound closure was similar to dictated on the left. Sterile dressings were applied to the right side and we used Silverlon dressings bilaterally. Patient procedure well. Tigre MARION was my physician junior assistant manager who assisted in patient positioning prepping and draping,leg positioning ,soft tissue retraction and instrument management and participated in the closing and will participate in postoperative care of the patient. The patient tolerated the procedure well. I attest to the content of the Intraoperative Record and any orders documented therein. Any exceptions are noted below.
[2018-11-28] MEDS ORDERED: VANCOMYCIN HCL 1,500 MG in SODIUM CHLORIDE 0.9% 500 ML IV SCH (20:00)
[2018-11-28] MEDS: DOXEPIN HCL 25 MG CAPSULE PO SCH (21:21)
[2018-11-28] MEDS: SENNA 8.6 MG TAB PO SCH (21:21)
[2018-11-28] MEDS: CeleBREX 200 MG CAP PO SCH (21:21)
[2018-11-28] MEDS: DOCUSATE SODIUM 100 MG CAP PO SCH (21:21)
[2018-11-28] MEDS: ACETAMINOPHEN 500 MG TAB PO SCH (21:22)
[2018-11-28] MEDS: SODIUM CHLORIDE 0.9% 1000ML 1,000 ML IV SCH ×2 (21:55→21:57)
[2018-11-29] MEDS: ACETAMINOPHEN 500 MG TAB PO SCH ×3 (05:28→21:00)
[2018-11-29 06:35] LABS: Hematocrit (blood only) 32.3 % (42-52); Hemoglobin 11.1 g/dL (14.0-18.0); Mean Corpuscular Hgb Conc 34.4 g/dL (32-36); Mean Corpuscular Volume 90.7 fL (80-100); Mean Platelet Volume 9.1 fL (7.4-10.4); Platelet Count 192 K/uL (130-400); RDW Coefficient of Variation 12.6 % (11.5-14.5); RDW Standard Deviation 42.3 fL (36.4-46.3); Red Blood Count 3.56 M/uL (4.7-6.1); White Blood Count 13.51 K/uL (4.8-10.8)
[2018-11-29 07:09] LABS: Calcium 8.7 mg/dl (8.5-10.1); Est GFR (African American) 88.9; Est GFR (Non-African American) 76.7; Potassium 4.3 mmol/L (3.5-5.1)
--- NOTE | 2018-11-29 08:02 | Anesthesiology Progress Note ---
Date of Service November 29, 2018 Anesthesia Post Procedure Vital Signs Vital Signs: Temp Pulse Pulse Resp BP BP Pulse Ox 11/29/18 07:18 36.5 C 75 18 116/74 97 11/29/18 04:09 36.8 C 84 16 112/71 97 11/28/18 23:42 36.6 C 76 16 118/78 97 11/28/18 19:56 36.4 C L 79 16 126/81 95 11/28/18 18:50 36.4 C L 79 16 122/81 99 11/28/18 18:02 36.6 C 81 18 129/86 100 11/28/18 17:19 36.3 C L 80 20 129/87 98 11/28/18 16:56 36.4 C L 85 18 121/85 98 11/28/18 16:30 84 12 117/79 97 11/28/18 16:20 36.4 C L 85 18 129/78 97 11/28/18 16:10 89 12 126/79 97 11/28/18 16:00 88 14 114/81 98 11/28/18 15:52 36.0 C L 90 13 108/78 100 11/28/18 10:20 36.7 C 80 16 155/99 H 100 Pain Intensity Bilateral Knee: Pain Intensity: 2 Notes Mental Status: alert / awake / arousable and participated in evaluation Nausea / Vomiting: adequately controlled Pain: adequately controlled Airway Patency, RR, SpO2: stable & adequate BP & HR: stable & adequate Hydration State: stable & adequate
--- NOTE | 2018-11-29 08:18 | Orthopedic Progress Note ---
Date of Service November 29, 2018 Assessment & Plan (1) Right knee DJD: POD #1 B/L TKA's PT/ OT DVT proph- Xarelto D/C planning- [facility] (2) Left knee DJD: Subjective POD #1, Doing well, denies sob, cp, n/v. Pain controlled well, states right knee a bit more sore than left. Physical Exam Physical Exam: B/L Knees: Dressings c/d/i, no drainage, drain in tact. Toes and ankles mobile. No calf tenderness. A&Ox3. Results & Data Vital Signs (Past 12 Hours) Vital Signs Temp Pulse Resp BP Pulse Ox 11/29/18 07:18 36.5 C 75 18 116/74 97 11/29/18 04:09 36.8 C 84 16 112/71 97 11/28/18 23:42 36.6 C 76 16 118/78 97
[2018-11-29] MEDS: AMLODIPINE BESYLATE 5 MG TAB PO SCH (08:37)
[2018-11-29] MEDS: CALCIUM 600MG + VIT D 400 IU TAB PO SCH (08:38)
[2018-11-29] MEDS: LACTOBACILLUS ACIDOPHILUS (FLORANEX) TAB PO SCH (08:38)
[2018-11-29] MEDS: RIVAROXABAN 10 MG TABLET PO SCH (08:39)
[2018-11-29] MEDS: CeleBREX 200 MG CAP PO SCH ×2 (08:39→20:59)
[2018-11-29] MEDS: DOCUSATE SODIUM 100 MG CAP PO SCH ×2 (08:39→20:59)
[2018-11-29] MEDS: BusPIRone 15 MG TAB PO SCH (08:40)
[2018-11-29] MEDS: LORATADINE 10 MG TAB PO SCH (08:40)
[2018-11-29] MEDS: MULTIVITAMIN TAB PO SCH (08:40)
[2018-11-29] MEDS: OXYCODONE HCL IR 5 MG TAB (IMMEDIATE RELEASE) PO PRN ×2 (08:44→23:32)
[2018-11-29] MEDS ORDERED: SODIUM CHLORIDE 0.9% 1000ML 500 ML IV ONE (10:06)
[2018-11-29] MEDS: TRAMADOL HCL 50 MG TABLET PO PRN ×2 (10:26→20:59)
[2018-11-29] MEDS: SODIUM CHLORIDE 0.9% 1000ML 1,000 ML IV SCH ×2 (10:52→21:04)
[2018-11-29] MEDS: DOXEPIN HCL 25 MG CAPSULE PO SCH (20:59)
[2018-11-29] MEDS: SENNA 8.6 MG TAB PO SCH (20:59)
[2018-11-30] MEDS: ACETAMINOPHEN 500 MG TAB PO SCH ×3 (05:04→21:27)
[2018-11-30] MEDS: OXYCODONE HCL IR 5 MG TAB (IMMEDIATE RELEASE) PO PRN ×2 (05:04→11:33)
[2018-11-30 06:06] LABS: Hematocrit (blood only) 26.6 % (42-52); Mean Corpuscular Hgb Conc 33.8 g/dL (32-36); Mean Corpuscular Volume 90.8 fL (80-100); Mean Platelet Volume 8.8 fL (7.4-10.4); Platelet Count 165 K/uL (130-400); RDW Standard Deviation 43.2 fL (36.4-46.3); Red Blood Count 2.93 M/uL (4.7-6.1)
[2018-11-30 06:42] LABS: BUN Creatinine Ratio 15.9 (10-20); Calcium 8.2 mg/dl (8.5-10.1); Creatinine Clr Calc Pharmacy 74.9 ml/min; Est GFR (African American) 84.7; Est GFR (Non-African American) 73.1; Potassium 4.2 mmol/L (3.5-5.1)
--- NOTE | 2018-11-30 07:32 | Internal Medicine Consult Note ---
Date of Consultation November 29, 2018 Assessment & Plan (1) Hypertension, essential: Will resume BP meds. BP has been stable. This AM Bp was low and patient required IV fluid. BP in evening is much better. (2) Left knee DJD: Management as per primary service (3) Right knee DJD: Management as per primary service Pain per primary service DVT prophylaxis per primary service (4) Sleep apnea in adult: will have patient use own CPAP. Patient appears to be medically stable. Will sign off but will follow peripherally. If any issues, arise, please do not hesitate to contact us. History of Present Illness Attending Physician: Ike Mendez MD History of Present Illness This is a pleasant 73 yo male who is here for end stage bilateral knee osteoarthritis. Patient is admitted for a bilateral knee replacement. Patient currently has no symptoms. Patient denies any chest pain, nausea, vomtiing, diarrhea, diaphoresis. PMH includes: Heart valve problem, hypertension, sleep apnea with the use of CPAP, osteoarthritis. Allergies Allergy/AdvReac Type Severity Reaction Status Date / Time amoxicillin AdvReac Mild N/V/DIARHEA Verified 11/28/18 09:58 clavulanic acid AdvReac Mild N/V/DIARHEA Verified 11/28/18 09:58 Home Medications Home Medications Medication Instructions Recorded Confirmed Type Glucosamine 1 tab PO QAM 11/12/18 11/28/18 History amlodipine 5 mg PO QAM 11/12/18 11/28/18 History aspirin [Aspir-81] 81 mg PO QAM 11/12/18 11/28/18 History buspirone 15 mg PO QAM 11/12/18 11/28/18 History calcium carbonate-vitamin D3 1 tab PO QAM 11/12/18 11/28/18 History [Calcium 500 + D] doxepin 25 mg PO HS 11/12/18 11/28/18 History lactobacillus combination no.4 3,000 mmu cells PO QAM 11/12/18 11/28/18 History [Probiotic] loratadine 10 mg PO QAM 11/12/18 11/28/18 History sildenafil 50 mg PO DAILY PRN 11/12/18 11/28/18 History tramadol 50 mg PO Q6H PRN 11/12/18 11/28/18 History Patient History Medical History Hypertension Osteoarthritis Post traumatic stress disorder Sleep apnea PT USES ORAL APPLIANCE Surgical History History of colonoscopy History of surgery BENIGN CYST EXCISION FROM RIGHT [place] CHILD 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 - MAC #4, ETT #8.0, HiLo, Grade 1 View Social History Preferred Language: Serbian Communication Ability: Effective Vp Software Required: No Beliefs That Will Affect Care: None marital status: Current Living Situation: Spouse Other Information That Helps Us Care for You: No Feels Safe at Home: Yes Safety Concerns: Feels Safe At This Time Smoking Status: Never smoker Tobacco Type: smokeless tobacco Do You Dip or Chew Tobacco: No (HX OF CHEWING TOBACCO USE, QUIT AT AGE 29) Second Hand Exposure: No Tobacco Cessation Education Requested by Patient: No Hx Alcohol Use: Yes Alcohol type: wine Hx Substance Use: No Review of Systems Constitutional: no fever and no body aches Eyes: no blind spots Ear, Nose, Mouth, Throat: no ear pain and no tinnitus Respiratory: no cough and no dyspnea Cardiovascular: no chest pain with activity and no dyspnea at rest Gastrointestinal: no nausea and no vomiting Genitourinary: no dysuria and no urinary hesitancy Musculoskeletal: no loss of height Integumentary: no acne and no lesions Neurologic: no localized weakness Psychiatric: no behavioral changes Endocrine: no fatigue Hematologic / Lymphatic: no easy bleeding Allergy / Immunological: no GI upset with certain foods Physical Exam Constitutional: WD/WN, vitals as above well developed and well nourished Eyes: PERRL, conjunctivae normal, anicteric sclerae ENMT: external ear and nose normal, oropharynx normal Neck: trachea midline, no thyromegaly Respiratory: normal respiratory effort, lungs clear to auscultation Cardiovascular: RRR, no murmur, no edema Gastrointestinal (Abdomen): normal bowel sounds, soft, nontender, no hepatosplenomegaly Musculoskeletal: Bilateral knees have dressings Results & Data Vital Signs (Past 12 Hours) Vital Signs Temp Pulse Resp BP Pulse Ox 11/29/18 23:19 36.7 C 87 18 126/79 98
[2018-11-30] MEDS: CeleBREX 200 MG CAP PO SCH ×2 (07:40→21:26)
[2018-11-30] MEDS: BusPIRone 15 MG TAB PO SCH (07:41)
[2018-11-30] MEDS: RIVAROXABAN 10 MG TABLET PO SCH (07:41)
[2018-11-30] MEDS: CALCIUM 600MG + VIT D 400 IU TAB PO SCH (07:42)
[2018-11-30] MEDS: DOCUSATE SODIUM 100 MG CAP PO SCH ×2 (07:42→21:26)
[2018-11-30] MEDS: LACTOBACILLUS ACIDOPHILUS (FLORANEX) TAB PO SCH (07:42)
[2018-11-30] MEDS: AMLODIPINE BESYLATE 5 MG TAB PO SCH (07:42)
[2018-11-30] MEDS: MULTIVITAMIN TAB PO SCH (07:43)
[2018-11-30] MEDS: LORATADINE 10 MG TAB PO SCH (07:43)
[2018-11-30] MEDS: SODIUM CHLORIDE 0.9% 1000ML 1,000 ML IV SCH (07:55)
--- NOTE | 2018-11-30 08:16 | Orthopedic Progress Note ---
Date of Service November 30, 2018 Assessment & Plan (1) Right knee DJD: POD #2 B/L TKA's PT/ OT DVT proph- Xarelto D/C planning- [facility] today As per medicine. (2) Left knee DJD: Subjective POD #2, Doing well, denies sob, cp, n/v. Pain controlled well, states right knee a bit more sore than left. Physical Exam Physical Exam: Both knees: Silverlon c/d/i, no erythema, no drainage. Toes and ankle mobile. NO calf tenderness. A&Ox3. Results & Data Vital Signs (Past 12 Hours) Vital Signs Temp Pulse Resp BP Pulse Ox 11/30/18 06:24 36.9 C 79 16 121/83 98 11/29/18 23:19 36.7 C 87 18 126/79 98
[2018-11-30] MEDS ORDERED: BusPIRone 15 MG TAB PO PRN (15:07)
[2018-11-30] MEDS: SENNA 8.6 MG TAB PO SCH (21:27)
[2018-11-30] MEDS: DOXEPIN HCL 25 MG CAPSULE PO SCH (21:27)
--- NOTE | 2018-11-30 21:55 | Hospitalist Progress Note ---
Date of Service November 30, 2018 Assessment & Plan (1) Orthostatic dizziness: Likely from surgery as patient had bilateral knee replacement. Patient likely is having symptomatic anemia. Patient though is refusing transfusion. Will continue to monitor patient overnight. (2) Hypertension, essential: Will resume BP meds. BP has been stable. Except for these episodes of orthostasis (3) Left knee DJD: Management as per primary service (4) Right knee DJD: Management as per primary service Pain per primary service DVT prophylaxis per primary service (5) Sleep apnea in adult: will have patient use own CPAP. Patient appears to be medically stable. Spent 25 minutes in management of patient. Subjective Pt resting in chair, pain controlled, denies complaints. D/W nurse, patient again had episode of being dizzy while ambulating. Patient reports though that he does not want any blood for his anemia. Patient understands the risk. Review of Systems Review of Systems: All systems reviewed & are unremarkable except as noted in HPI & below Physical Exam Constitutional: WD/WN, vitals as above well developed and well nourished Eyes: PERRL, conjunctivae normal, anicteric sclerae ENMT: external ear and nose normal, oropharynx normal Neck: trachea midline, no thyromegaly Respiratory: normal respiratory effort, lungs clear to auscultation Cardiovascular: RRR, no murmur, no edema Gastrointestinal (Abdomen): normal bowel sounds, soft, nontender, no hepatosplenomegaly Results & Data Vital Signs (Past 12 Hours) Vital Signs Temp Pulse Pulse Resp BP Pulse Ox 11/30/18 16:16 36.6 C 83 19 117/72 100 11/30/18 13:20 83 118/63 11/30/18 13:10 83 118/71 93 11/30/18 12:50 36.9 C 90 18 134/76 98
[2018-12-01] MEDS: ACETAMINOPHEN 500 MG TAB PO SCH (05:58)
[2018-12-01 06:33] LABS: Basophils # (auto) 0.02 K/uL (0-0.2); Basophils % (auto) 0.2 %; Eosinophils # (auto) 0.42 K/uL (0-0.5); Eosinophils % (auto) 4.3 %; Hematocrit (blood only) 26.5 % (42-52); Immature Granulocytes # (auto) 0.03 K/uL (0.00-0.02); Immature Granulocytes % (auto) 0.3 %; Lymphocytes # (auto) 2.04 K/uL (1.2-3.4); Lymphocytes % (auto) 20.9 %; Mean Corpuscular Volume 91.4 fL (80-100); Mean Platelet Volume 9.2 fL (7.4-10.4); Monocytes # (auto) 0.89 K/uL (0.11-0.59); Monocytes % (auto) 9.1 %; Neutrophils # (auto) 6.36 K/uL (1.4-6.5); Neutrophils % (auto) 65.2 %; Platelet Count 187 K/uL (130-400); RDW Standard Deviation 43.3 fL (36.4-46.3); White Blood Count 9.76 K/uL (4.8-10.8)
--- NOTE | 2018-12-01 08:25 | Orthopedic Progress Note ---
Date of Service December 01, 2018 Assessment & Plan (1) Status post bilateral knee replacements: 73 yo male stable POD #3 s/p bilat TKA, BP improved 1. Med management 2. DVT prophylaxis- Xarelto, SCDs 3. PT/OT 4. D/C planning- d/c to [facility] Subjective Pt resting in chair, pain controlled, denies complaints Physical Exam Physical Exam: Toes mobile, N/V/I, Prevena dressings in place Results & Data Vital Signs (Past 12 Hours) Vital Signs Temp Pulse Resp BP Pulse Ox 12/01/18 07:10 36.7 C 92 H 18 133/81 96 11/30/18 23:43 37.1 C 99 H 16 118/68 95 Laboratory Results 12/01/18 Range/Units 06:07 WBC 9.76 (4.8-10.8) K/uL RBC 2.90 L (4.7-6.1) M/uL Hgb 9.0 L (14.0-18.0) g/dL Hct 26.5 L (42-52) % MCV 91.4 (80-100) fL MCH 31.0 (25-34) pg MCHC 34.0 (32-36) g/dL RDW Std Deviation 43.3 (36.4-46.3) fL RDW Coeff of Isrrael 13.0 (11.5-14.5) % Plt Count 187 (130-400) K/uL MPV 9.2 (7.4-10.4) fL Immature Gran % (Auto) 0.3 % Neut % (Auto) 65.2 % Lymph % (Auto) 20.9 % Lane % (Auto) 9.1 % Eos % (Auto) 4.3 % Baso % (Auto) 0.2 % Immature Gran # (Auto) 0.03 H (0.00-0.02) K/uL Neut # (Auto) 6.36 (1.4-6.5) K/uL Lymph # (Auto) 2.04 (1.2-3.4) K/uL Lane # (Auto) 0.89 H (0.11-0.59) K/uL Eos # (Auto) 0.42 (0-0.5) K/uL Baso # (Auto) 0.02 (0-0.2) K/uL
[2018-12-01] MEDS: CALCIUM 600MG + VIT D 400 IU TAB PO SCH (09:01)
[2018-12-01] MEDS: CeleBREX 200 MG CAP PO SCH (09:01)
[2018-12-01] MEDS: BusPIRone 15 MG TAB PO SCH (09:01)
[2018-12-01] MEDS: LORATADINE 10 MG TAB PO SCH (09:02)
[2018-12-01] MEDS: DOCUSATE SODIUM 100 MG CAP PO SCH (09:03)
[2018-12-01] MEDS: MULTIVITAMIN TAB PO SCH (09:03)
[2018-12-01] MEDS: LACTOBACILLUS ACIDOPHILUS (FLORANEX) TAB PO SCH (09:03)
[2018-12-01] MEDS: AMLODIPINE BESYLATE 5 MG TAB PO SCH (09:04)
[2018-12-01] MEDS: RIVAROXABAN 10 MG TABLET PO SCH (09:04)
[2018-12-01] MEDS: TRAMADOL HCL 50 MG TABLET PO PRN (09:14)
--- OUTSIDE RECORDS SUMMARY | 2018-12-03 20:14 | External Medical Summary | Continuity of Care Document ---
:1945 Author Name Shaina Benites, Provider Address Unavailable Unavailable , Care Team Providers Name Role Phone Unavailable Unavailable Unavailable PCP, UNKNOWN Unavailable Unavailable Unavailable Unavailable Unavailable Assessments Assessed Problems:Encounter for preventive health examination Problems Internal hemorrhoids (455.0) (K64.8) Diverticulosis (562.10) (K57.90) Tubular adenoma of colon (211.3) (D12.6) Allergies and Adverse Reactions No Known Drug Allergies (Allergy) Medications Medications not documented Procedures Procedures not documented Immunizations Immunizations not documented Plan of Treatment Planned Observations Planned Goals not documented Results No Known Results Results not documented
--- NOTE | 2018-12-12 10:41 | Discharge Summary ---
HISTORY OF PRESENT ILLNESS: This is a 73-year-old male patient of Dr. Mendez's complaining of chronic bilateral knee pain, longstanding, progressively getting worse. The patient failed conservative treatment and had been diagnosed with end-stage osteoarthritis per clinical and radiographic exams. The patient wished to proceed with bilateral total knee arthroplasty. PAST MEDICAL HISTORY: Heart valve problem, hypertension, sleep apnea with the use of CPAP, and osteoarthritis. POSTOPERATIVE COURSE: The patient underwent bilateral total knee arthroplasties. On 12/01/2018, he was followed closely with medical consultation, DVT prophylaxis in the form of aspirin, physical therapy and pain control. The patient did have some hypotension and some dizziness, postoperative day #2, his hemoglobin did drop in the 8s; however, he did refuse to get any type of blood transfusion at that time. On discharge, systolic pressure was 133 and hemoglobin was at 9. Otherwise, an uneventful postoperative course. PHYSICAL EXAMINATION: On discharge, bilateral knee Silverlon dressings were clean, dry and intact. There was no redness or drainage bilaterally and no calf tenderness bilaterally. Negative Homans sign bilaterally. He was able to move his toes and ankles on both lower extremities. Neurologically and neurovascularly, he is intact in both lower extremities. DIAGNOSES: Status post bilateral total knee arthroplasties with a history of heart valve problem, hypertension, sleep apnea with the use of CPAP, and osteoarthritis. PLAN: The patient was discharged to [facility]. He will continue his preadmission medications with the addition of Xarelto for DVT prophylaxis and pain medications. He will follow up with Dr. Mendez as scheduled as an outpatient.
== END 2018-12-01 11:48 | DRG 462 ==
LOC: ASU 09:17 → 3E 16:03